=== PATIENT | male | born 1940 | race Caucasian/White ===

== ENCOUNTER → 2016-06-28 | Day surgery (SDC) | payer MEDICARE, OTHER ==
[2016-06-28 07:28] LABS: HCT 40.6 % (42.0-52.0); HGB 13.3 g/dl (13.2-18.0); MCH 31.1 pg (25.0-31.0); MCHC 32.8 g/dL (32.0-36.0); MCV 95.1 fL (78.0-100.0); MPV 9.5 fL (6.0-9.5); RBC 4.27 M/uL (4.70-6.00); RDW 13.4 % (11.5-14.0); WBC 5.1 K/uL (4.0-10.5)
[2016-06-28 07:35] LABS: CREATININE 1.4 mg/dL (0.7-1.2); POTASSIUM 3.6 mmol/L (3.5-5.1)
== END | disposition home or self-care (01) ==
LOC: FAS 06:32
PROVIDERS: Legal Medicine
DX: M75.111 Incomplete rotator cuff tear or rupture of right shoulder, not specified as traumatic (principal); M75.41 Impingement syndrome of right shoulder; M19.011 Primary osteoarthritis, right shoulder; S43.491A Other sprain of right shoulder joint, initial encounter; M19.90 Unspecified osteoarthritis, unspecified site; K21.9 Gastro-esophageal reflux disease without esophagitis; I10 Essential (primary) hypertension; G47.30 Sleep apnea, unspecified; Z99.89 Dependence on other enabling machines and devices; Z90.89 Acquired absence of other organs; Z79.82 Long term (current) use of aspirin; Z79.899 Other long term (current) drug therapy; Z98.890 Other specified postprocedural states
CPT/HCPCS: 36415; 80048; 93005; J0690; J1100; J2405; J2704; J2795; J3010